=== PATIENT | male | born 1990 | race African-American/Black ===

== ENCOUNTER 2019-10-17 16:31 | Observation (INO) | payer BC ==
[2019-10-17 17:00] LABS: Hemoglobin 15.1 g/dL (14.0-18.0); Mean Corpuscular HGB CONC 31.2 g/dL (32.0-36.0); Mean Corpuscular Hemoglobin 29.1 pg (27.0-31.0); Mean Corpuscular Volume 93.4 fL (78.0-98.0); Platelet Count 265 thou/uL (130-400); RBC Distribution Width 11.3 % (11.5-14.5); Red Blood Cell (RBC) Count 5.19 mill/uL (4.70-6.10); White Blood Cell (WBC) Count 17.1 thou/uL (4.8-10.8)
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
[2019-10-17 17:16] LABS: Actual Bicarbonate (HCO3a) 10.5 mEq/L (22-28); Analyzer IN Cardio ER; Base Excess (BEa) -18.3 mEq/L (-2.0 to +3.0); CO2 Tension 34.8 mmHg (35.0-45.0); Calcium, Ionized 1.33 mmol/L (1.12-1.30); Carboxyhemoglobin (COHb) 0.7 gm% (0.0-3.0); Hemoglobin (Hb) 15.7 g/dL (14.0-18.0); O2 Tension (PaO2), arterial 187.8 mmHg (80.0-100.0); Potassium - ABG Lab 4.04 mmol/L (3.70-5.30)
[2019-10-17 17:18] LABS: Puncture Site RRA
[2019-10-17 17:25] LABS: Band 2 % (5-11); Eosinophils 1 % (0-10); Lymphocytes 44 % (21-51); MDiff Complete? YES; Monocytes 5 % (0-10); Neutrophil 48 % (42-75); Platelet Morphology Comment Appears Adequate; RBC Morphology Normal
[2019-10-17 17:28] LABS: ALT (SGPT) 23 U/L (8-55); AST (SGOT) 23 U/L (5-34); Albumin 4.7 g/dL (3.5-5.0); Alkaline Phosphatase 78 U/L (40-110); Anion Gap 30 mmol/L (10-20); BUN (Urea Nitrogen) 10 mg/dL (8.9-20.6); Bilirubin, Total 0.5 mg/dL (0.2-1.2); Calc. Creatinine Clearance 0 mL/min (70-130); Calcium 10.2 mg/dL (7.8-10.44); Carbon Dioxide 10 mmol/L (22-29); Chloride 105 mmol/L (98-107); Estimated GFR-MDRD 58; Globulin 3.2 g/dL (2.4-3.5); Glucose 164 mg/dL (70-105); Potassium 4.3 mmol/L (3.5-5.1); Protein, Total 7.9 g/dL (6.0-8.3); Sodium 141 mmol/L (136-145)
[2019-10-17] MEDS ORDERED: Acetaminophen 325 MG TAB PO PRN (18:27)
[2019-10-17] MEDS ORDERED: Ondansetron PF 4 MG/2 ML Vial IVP PRN (18:27)
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
[2019-10-17 21:18] LABS: Lactic Acid 2.3 mmol/L (0.5-2.2)
[2019-10-17 21:26] VITALS: BMI 25.1
[2019-10-18 01:08] LABS: Actual Bicarbonate (HCO3a) 19.9 mEq/L (22-28); Base Excess (BEa) -2.8 mEq/L (-2.0 to +3.0); CO2 Tension 29.3 mmHg (35.0-45.0); Calcium, Ionized 1.23 mmol/L (1.12-1.30); Carboxyhemoglobin (COHb) 0.7 gm% (0.0-3.0); Hemoglobin (Hb) 14.5 g/dL (14.0-18.0); O2 Tension (PaO2), arterial 120.6 mmHg (80.0-100.0); Potassium - ABG Lab 3.72 mmol/L (3.70-5.30); pH, Arterial 7.45 (7.35-7.45)
[2019-10-18 01:13] LABS: Puncture Site RRADIAL
[2019-10-18 01:14] LABS: ALV-art Gradient -7.495 (0-20)
[2019-10-18 04:52] LABS: ALT (SGPT) 19 U/L (8-55); AST (SGOT) 25 U/L (5-34); Albumin 4.2 g/dL (3.5-5.0); Alkaline Phosphatase 55 U/L (40-110); Anion Gap 16 mmol/L (10-20); BUN (Urea Nitrogen) 16 mg/dL (8.9-20.6); Bilirubin, Total 0.6 mg/dL (0.2-1.2); CK (CPK) 332 U/L (30-200); Calc. Creatinine Clearance 53 mL/min (70-130); Calcium 9.2 mg/dL (7.8-10.44); Carbon Dioxide 21 mmol/L (22-29); Chloride 105 mmol/L (98-107); Estimated GFR-MDRD 42; Globulin 2.9 g/dL (2.4-3.5); Glucose 91 mg/dL (70-105); Protein, Total 7.1 g/dL (6.0-8.3); Sodium 138 mmol/L (136-145)
[2019-10-18 09:31] VITALS: BP 128/71; TEMP 98.4
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
--- NOTE | 2019-10-21 16:11 | EKG ---
Test Reason : Blood Pressure : / mmHG Vent. Rate : 057 BPM Atrial Rate : 057 BPM P-R Int : 150 ms QRS Dur : 092 ms QT Int : 422 ms P-R-T Axes : 064 072 028 degrees QTc Int : 410 ms Sinus bradycardia Anterior ischemia When compared with ECG of 17-OCT-2019 17:24, (Unconfirmed) Vent. rate has decreased BY [address] elevation now present in Anterior leads T wave inversion no longer evident in Inferior leads T wave inversion less evident in Anterior leads Confirmed by LUCY NORTH ([id number]) on 10/21/2019 4:11:40 PM Referred By: DIANE Confirmed By:LUCY NORTH
--- NOTE | 2019-10-25 15:54 | EKG ---
Test Reason : Blood Pressure : / mmHG Vent. Rate : 087 BPM Atrial Rate : 087 BPM P-R Int : 134 ms QRS Dur : 086 ms QT Int : 368 ms P-R-T Axes : 067 066 -05 degrees QTc Int : 442 ms Normal sinus rhythm T wave abnormality, consider anterior ischemia Abnormal ECG Confirmed by NADEEN PRABHAKAR, RICKIE Jesus ([id number]), visual effects editor TRESSA MERCER ([id number]) on 10/25/2019 3:53:43 PM Referred By: Confirmed By:RICKIE SENIOR MD
--- NOTE | 2019-10-25 15:54 | EKG ---
Test Reason : ER Blood Pressure : / mmHG Vent. Rate : 133 BPM Atrial Rate : 133 BPM P-R Int : 254 ms QRS Dur : 086 ms QT Int : 338 ms P-R-T Axes : 075 074 -66 degrees QTc Int : 503 ms Sinus tachycardia with 1st degree A-V block with Premature supraventricular complexes Marked ST abnormality, possible inferior subendocardial injury Abnormal ECG Confirmed by NADEEN PRABHAKAR, RICKIE Jesus ([id number]), order editor TRESSA MERCER ([id number]) on 10/25/2019 3:53:41 PM Referred By: Confirmed By:RICKIE SENIOR MD
== END 2019-10-18 11:16 | disposition left against medical advice (07) ==
LOC: ERS 16:31 → 2NO 19:59
PROVIDERS: ADMIT Internal Medicine; ATTEND Internal Medicine
DX: J96.91 Respiratory failure, unspecified with hypoxia (principal); G93.41 Metabolic encephalopathy; E87.2 Acidosis; I48.91 Unspecified atrial fibrillation; D72.829 Elevated white blood cell count, unspecified; W01.0XXA Fall on same level from slipping, tripping and stumbling without subsequent striking against object, initial encounter
CPT/HCPCS: 36415; 71045; 80053; 82550; 82553; 82805; 83605; 84484; 85025; 93005; 93010; 94760; G0378